=== PATIENT | female | born 1995 | race Caucasian/White ===

== ENCOUNTER → 2022-10-22 13:19 | Outpatient (ROUT) | payer OTHER, MEDICAID, SELFPAY ==
[2022-10-22 13:29] LABS: Add Manual Diff / Slide Review NO; Basophils Absolute Auto 0 /uL (0-100); Basophils Percent Auto 0.2 % (0-2); Eosinophils Absolute Auto 0 /uL (0-450); Eosinophils Percent Auto 0.1 % (2-4); Hematocrit 37.7 % (36-46); Lymphocytes Absolute Auto 2100 /uL (1100-4500); Lymphocytes Percent Auto 15.6 % (25-40); Mean Corpuscular HGB Conc 34.4 % (30-36); Mean Corpuscular Hemoglobin 30.5 PG (26-34); Mean Corpuscular Volume 88.5 fL (80-100); Monocytes Absolute Auto 700 /uL (0-900); Neutrophils Absolute Auto 10900 /uL (1500-7000); Neutrophils Percent Auto 79.1 % (50-75); Platelet Count 264 X10^3/uL (150-400); Red Blood Cell Count 4.26 X10^6/uL (4.0-5.2); Red Cell Distribution Width 13.4 % (11.6-14.8); White Blood Cell Count 13.7 X10^3/uL (4.5-11.0)
[2022-10-22 14:13] LABS: Aspartate Aminotransferase 26 IU/L (14-36); BUN Creatinine Ratio 12.7 (6-22); Blood Urea Nitrogen 7 mg/dL (7-17); Estimated Glomerular Filt Rate > 60 mL/min (>60); Uric Acid 5.6 mg/dL (2.5-6.2)
[2022-10-22 15:23] LABS: Creatinine Urine Random 100.5 mg/dL; Protein (Total) Urine Random 16 mg/dL (0-12); Protein Creatinine Ratio Urine 0.15 GRAM/24H
== END ==
PROVIDERS: Visit Provider Nurse Practitioner Obstetrics & Gynecology
DX: Z34.93 Encounter for supervision of normal pregnancy, unspecified, third trimester (principal); R03.0 Elevated blood-pressure reading, without diagnosis of hypertension
CPT/HCPCS: 82570; 84156; 84450; 84550; 85025

== ENCOUNTER 2022-10-22 15:36 | Inpatient (IN) | payer OTHER, MEDICAID, SELFPAY ==
[2022-10-22] MEDS: LACTATED RINGERS 1,000 ML 100 ML IV ×2 (16:50→22:23)
[2022-10-22 17:26] LABS: Add Manual Diff / Slide Review NO; Basophils Absolute Auto 0 /uL (0-100); Basophils Percent Auto 0.1 % (0-2); Eosinophils Absolute Auto 0 /uL (0-450); Eosinophils Percent Auto 0.1 % (2-4); Hematocrit 35.3 % (36-46); Hemoglobin 12.3 g/dL (12.0-16.0); Lymphocytes Absolute Auto 1700 /uL (1100-4500); Lymphocytes Percent Auto 15.1 % (25-40); Mean Corpuscular HGB Conc 34.9 % (30-36); Mean Corpuscular Hemoglobin 30.8 PG (26-34); Mean Corpuscular Volume 88.2 fL (80-100); Monocytes Absolute Auto 600 /uL (0-900); Monocytes Percent Auto 5.3 % (3-14); Neutrophils Absolute Auto 8800 /uL (1500-7000); Neutrophils Percent Auto 79.4 % (50-75); Platelet Count 232 X10^3/uL (150-400); Red Cell Distribution Width 13.1 % (11.6-14.8); White Blood Cell Count 11.1 X10^3/uL (4.5-11.0)
[2022-10-22 17:53] LABS: Alanine Aminotransferase 17 IU/L (<35); Albumin 3.7 g/dL (3.5-5.0); Alkaline Phosphatase 135 U/L (38-126); Aspartate Aminotransferase 26 IU/L (14-36); BUN Creatinine Ratio 10.3 (6-22); Bilirubin Total 0.3 mg/dL (0.2-1.3); Blood Urea Nitrogen 6 mg/dL (7-17); Calcium 8.5 mg/dL (8.4-10.2); Carbon Dioxide 22 mmol/L (22-32); Chloride 104 mmol/L (98-107); Estimated Glomerular Filt Rate > 60 mL/min (>60); Globulin 3.6 g/dL (1.7-4.1); Glucose 90 mg/dL (70-100); HEMOLYSIS < 15 (0-50); Potassium 3.6 mmol/L (3.4-5.1); Sodium 134 mmol/L (137-145); Total Protein 7.3 g/dL (6.3-8.2)
--- NOTE | 2022-10-22 18:02 | P.HPOB_ITS ---
OB HPI Date/Time Date of admission: 10/22/22 Date Patient Seen: 10/22/22 Time Patient Seen: 17:00 History of Present Condition Chief complaint: obs of labor/induced : 4 Para: 1 Estimated Date of Delivery: 10/27/22 Estimated Gestational Age (weeks): 39w2d Narrative: Alan Ingram is a 27 year old female by approximate LMP 01/20/22 concordant with 13week US. Uncomplicated care with CNMs. Mild anemia in , managed with oral iron supplementation. The past day Alan had a persistent headache, emesis, and elevated blood pressures at home, took 500mg acetaminophen. Came to clinic for evaluation, serial blood pressures were elevated. PIH panel and urine/creatine labs collected and sent to the lab. Recommended additional 500mg acetaminophen, headache relieved. Here for an IOL d/t gestational hypertension. Hx of gestational hypertension in previous with uncomplicated . Epidural catheter piece left in her back. Supportive at bedside. Indications Indication for induction OB: gestational HTN/pre-eclampsia History of Present care: good care, initiated at week # (13), number of visits (11) and pounds weight gain (35) Dating criteria: LMP confirmed by 1st trimester US Ultrasounds: normal 1st trimester US and normal mid trimester US Obstetrical complications: gestational hypertension Medical complications: none Preadmission Labs Blood type: A (+) positive -: Antibody screen: negative, Cystic fibrosis screen: negative, GBS status: negative, HIV: negative and RPR/VDLR: negative -: Rubella: immune and Varicella: immune PAP: Normal Cell-free DNA: Negative Urine: Negative 1 hr GTT: 97 Prior (ies) History: NSVB x1 - GHTN Evaluation Evaluation Baseline heart rate: 155 Variability: Moderate (11-25) monitor accelerations: Present Monitor Decelerations: Absent Contraction Frequency (minutes): 4 Uterine Contraction Intensity: Moderate Category of Tracing: Reactive Status: Category l Dilation (cm): 4 Effacement (%): 75 Dilation: 3-4 cm Effacement: 60-70% station: -2 Position of cervix: mid Consistency: soft Durant score: 8 PFSH Medical History (Updated 10/22/22 @ 19:39 by Negin Snyder CNM, MANAGER CLIENT SUPPORT) Epidural catheter present Surgical History (Updated 10/22/22 @ 18:36 by Negin Snyder CNM, DINA) Appendicitis Family History (Updated 10/22/22 @ 18:38 by Negin Snyder CNM, DINA) Mother Hypertension Father Cancer Social History (Updated 10/22/22 @ 18:40 by Negin Snyder CNM, DINA) marital status: unmarried,living together number of children: 1 household members: spouse lives independently: Yes caregiver/support person: No housing: house occupational status: employed Meds Home Medications and Allergies Home Medications Medication Instructions Recorded Confirmed Type No Known Home Medications 10/22/22 10/22/22 History Allergies Allergy/AdvReac Type Severity Reaction Status Date / Time No Known Drug Allergies Allergy Verified 10/22/22 16:39 Review of Systems Review of Systems ROS: Yes All systems reviewed with the patient and are negative except as o therwise documented OB Exam Vital signs Blood Pressure: 153/89 Pulse Rate: 83 Respiratory Rate: 16 Temperature: 97.7 F Objective Labs 10/22/22 17:00 10/22/22 17:30 Labs: Laboratory Results - last 24 hr 10/22/22 10/22/22 17:00 17:30 WBC 11.1 H RBC 4.00 Hgb 12.3 Hct 35.3 L MCV 88.2 MCH 30.8 MCHC 34.9 RDW 13.1 Plt Count 232 Neut % (Auto) 79.4 H Lymph % (Auto) 15.1 L Yancey % (Auto) 5.3 Eos % (Auto) 0.1 L Baso % (Auto) 0.1 Neut # (Auto) 8800 H Lymph # (Auto) 1700 Yancey # (Auto) 600 Eos # (Auto) 0 Baso # (Auto) 0 Sodium 134 L Potassium 3.6 Chloride 104 Carbon Dioxide 22 BUN 6 L Creatinine 0.58 Estimated GFR > 60 BUN/Creatinine Ratio 10.3 Glucose 90 Calcium 8.5 Total Bilirubin 0.3 AST 26 ALT 17 Alkaline Phosphatase 135 H Total Protein 7.3 Albumin 3.7 Globulin 3.6 Albumin/Globulin Ratio 1.0 Assessment and Plan Assessment and Plan Assessment and Plan narrative: A: IUP at 39w2d FHR Cat II: tachycardia Anemia in resolved Gestational hypertension Rh positive GBS negative Favorable cervix P: Standard admit orders IOL with AROM, pitocin PRN Continuous monitoring Fluid bolus for tachycardia Continuous blood pressure monitoring Pain plan includes NO2, Epidural analgesia when requested
[2022-10-22 18:48] VITALS: BP 153/89; PULSE 83; RESP 16; TEMP 36.5
--- NOTE | 2022-10-22 19:39 | PM.OBPNLAB ---
Date/Time Date Patient Seen: 10/22/22 Time Patient Seen: 19:23 Pain Control Pain control: tolerating well Comments: Alan is coping well with consistent contractions after fore bag of stapleton were broken by SNM, no leaking fluid. Bouncing on the ball, supported by her partner. States that the contractions are getting longer and stronger and needing to breathe through them. Consents to cervical check by CNM and try again to break bag of stapleton. Denies headache, visual changes, epigastric pain. BP: 134/86 Pulse: 85 MAP: 106mmHg Temp: 36.4C O2: 98% Contractions Frequency: 4-4.5min Length: 1.5min Strength: Moderate contractions by palpation, soft resting tone Pelvic Exam Dilation (cm): 4 Effacement (%): 75 station: -2 Amniotic membrane status: Intact Comments: AROM with light mec Contractions Date/Time contractions began: 10/22/22 1615 Contractions on admission: irregular Monitor mode: External Contraction frequency (min): 4 Contraction duration (min): 1 Contraction pattern: Regular Contraction intensity: Moderate Status status: Category l Heart Rate Baseline: 145 Monitor Accelerations: Present Monitor Decelerations: Absent Monitor Variability: Moderate Comments: tachycardia noted on admission resolved easily with fluid bolus. Assessment and Plan Assessment: active labor and induction ongoing Plan: continuous present management Comments: Assessment: at 39w2d by LMP in early labor Meconium stained amniotic fluid IOL for GHTN FHR Cat 1 green Plan: AROM Alert RT to be present at delivery d/to MSAF Nitrous for pain management, epidural on request. Continuous monitoring r/to GHTN Repeat PET labs at 12 hours. Anticipate NSVB.
[2022-10-22] MEDS: LACTATED RINGERS 1,000 ML 999 ML IV (19:45)
--- NOTE | 2022-10-22 20:00 | PM.AN.REGBLK ---
Regional Block Pre-procedure Procedure: Continuous Lumbar Epidural for L&D Attending OB provider: Negin Snyder PMH/ROS narrative: at 39+, uncomplicated . H/o epidural tip retained, outside epidural space, to Right of L3 spinous process per record. No other sig PMH. ASA Class: II Labs: Hct 35.3 % (36-46) L 10/22/22 17:00 Plt Count 232 X10^3/uL (150-400) 10/22/22 17:00 Medications: Current Medications Generic Name Dose Route Start Last Admin Trade Name Freq PRN Reason Stop Dose Admin Carboprost Tromethamine 250 mcg 10/22/22 16:37 Carboprost 250 Mcg/Ml Ampul IM Q90M PRN Bleeding Diphenhydramine HCl 25 mg 10/22/22 19:59 Diphenhydramine 50 Mg/Ml Vial IV Q10M PRN Pruritis Fentanyl 50 mcg 10/22/22 16:37 Fentanyl 100 Mcg/2 Ml Inj IV Q1H PRN Pain, Moderate (4-6) Oxytocin/Lactated Ringer's 30 unit in 500 mls @ 200 mls/hr 10/22/22 16:37 Oxytocin Premix IV CONT PRN Bleeding Protocol Tranexamic Acid 1,000 mg/ 100 mls @ 200 mls/hr 10/22/22 16:37 Sodium Chloride IV NOW PRN Bleeding Oxytocin/Lactated Ringer's 30 unit in 500 mls @ 2 mls/hr 10/22/22 16:45 Oxytocin Premix IV TITRATE BEKA Protocol 2 MILLIUNIT/MIN Lactated Ringer's 1,000 mls @ 100 mls/hr 10/22/22 16:45 10/22/22 19:45 Lactated Ringers IV 999 mls/hr CONT BEKA Administration FENT 2MCG/ML BUPIV 0.125% EPI 200 mcg in 100 mls @ 6 mls/hr 10/22/22 20:00 Fentanyl/Bupiv/Ns 2mcg/Ml - 0.125% EPIDURAL CONT BEKA Methylergonovine Maleate 0.2 mg 10/22/22 16:37 Methylergonovine 0.2 Mg Tablet PO Q6HR PRN Heavy Bleeding Methylergonovine Maleate 0.2 mg 10/22/22 16:37 Methylergonovine 0.2 Mg/Ml Vial IM NOW PRN Bleeding Misoprostol 800 mcg 10/22/22 16:37 Misoprostol 200 Mcg Tablet MO NOW PRN Bleeding Misoprostol 400 mcg 10/22/22 16:37 Misoprostol 200 Mcg Tablet SL NOW PRN Bleeding Nalbuphine HCl 2.5 mg 10/22/22 19:59 Nalbuphine 20 Mg/Ml Ampul IV Q10M PRN Pruritis Naloxone HCl 0.2 mg 10/22/22 16:37 Naloxone 0.4 Mg/Ml Vial IV Q2MIN PRN Opiate Reversal Oxytocin 10 unit 10/22/22 16:37 Oxytocin 10 Unit/Ml Vial IM NOW PRN Bleeding Allergies: Allergies Allergy/AdvReac Type Severity Reaction Status Date / Time No Known Drug Allergies Allergy Verified 10/22/22 16:39 Procedure Insertion date: 10/22/22 Insertion time: 20:10 Prep/Local: betadine x3 and 1% lidocaine Interspace: L4-5 Patient position: sitting Needle: 18 gauge Hustead (CSE: 27g Pencan through Hustead, clear CSF, 2.5mg MPF bupiv) Loss of resistance with: saline SANDI at (cm): 5 Catheter placed at SKIN (cm): 10 Catheter in SPACE (cm): 5 Insertion: No CSF, No Blood, No Paresthesia with insertion, No Paresthesia with injection and No Test dose reaction Initial Medications TEST DOSE time: 20:08 TEST DOSE: 1.5% lidocaine with epinephrine 1:200k (mL): 3 Infusion INFUSION: 0.125% bupivacaine and with fentanyl 2 mcg/mL Initial rate (mL/hr): 8 Subsequent interventions: Post-procedure Anesthesia time START: 20:02 Anesthesia time END: :23 Post-procedure Anesthesia Assessment: Yes CV function: HR/BP stable, Yes Resp function: RR/sat/airway adequate, Yes Post-op hydration adequate, Yes Pain control adequate, Yes Nausea & vomiting absent, Yes Mental status appropriate and No Anesthesia complications
--- NOTE | 2022-10-23 00:05 | PM.OBPNLAB ---
Date/Time Date Patient Seen: 10/22/22 Time Patient Seen: 11:45 Pain Control Pain control: epidural Comments: Allee comfortable with epidural. TJ present, providing support. Pelvic Exam Dilation (cm): 10 Effacement (%): 100 station: +1 Amniotic membrane status: Intact Comments: LOP, caput present on posterior vertex Vital Signs: BP 139/80 HR 101 bpm T 36.0 Contractions Date/Time contractions began: Active labor began on 10/22/2022 at 1923 with AROM Contractions on admission: irregular Monitor mode: External Contraction frequency (min): 2 Contraction duration (min): 80 Contraction pattern: Regular Contraction intensity: Moderate Status status: Category l Heart Rate Baseline: 140 Monitor Accelerations: Present Monitor Decelerations: Variable Monitor Variability: Moderate Comments: non-recurrent variable decelerations Assessment and Plan Comments: at 39w2d GHTN 2nd stage labor GBS neg FHR Cat 2 green Plan: Labor down x 30-45 minutes to give baby time to rotate Repeat PET labs now, ordered STAT. Anticipate
[2022-10-23 00:57] LABS: Add Manual Diff / Slide Review NO; Basophils Absolute Auto 100 /uL (0-100); Basophils Percent Auto 0.3 % (0-2); Eosinophils Absolute Auto 0 /uL (0-450); Hematocrit 36.8 % (36-46); Hemoglobin 12.6 g/dL (12.0-16.0); Lymphocytes Absolute Auto 2000 /uL (1100-4500); Lymphocytes Percent Auto 9.6 % (25-40); Mean Corpuscular HGB Conc 34.3 % (30-36); Mean Corpuscular Hemoglobin 30.6 PG (26-34); Mean Corpuscular Volume 89.2 fL (80-100); Monocytes Absolute Auto 800 /uL (0-900); Neutrophils Absolute Auto 18200 /uL (1500-7000); Neutrophils Percent Auto 86.1 % (50-75); Platelet Count 254 X10^3/uL (150-400); Red Blood Cell Count 4.13 X10^6/uL (4.0-5.2); Red Cell Distribution Width 13.7 % (11.6-14.8); White Blood Cell Count 21.1 X10^3/uL (4.5-11.0)
[2022-10-23 01:01] LABS: Alanine Aminotransferase 18 IU/L (<35); Albumin 3.7 g/dL (3.5-5.0); Alkaline Phosphatase 144 U/L (38-126); Aspartate Aminotransferase 27 IU/L (14-36); BUN Creatinine Ratio 9.4 (6-22); Bilirubin Total 0.5 mg/dL (0.2-1.3); Blood Urea Nitrogen 5 mg/dL (7-17); Calcium 8.3 mg/dL (8.4-10.2); Carbon Dioxide 23 mmol/L (22-32); Chloride 102 mmol/L (98-107); Estimated Glomerular Filt Rate > 60 mL/min (>60); Globulin 3.7 g/dL (1.7-4.1); Glucose 94 mg/dL (70-100); HEMOLYSIS < 15 (0-50); Potassium 3.6 mmol/L (3.4-5.1); Sodium 132 mmol/L (137-145); Total Protein 7.4 g/dL (6.3-8.2)
[2022-10-23] MEDS: ONDANSETRON 4 MG/2 ML INJ IV (01:20)
[2022-10-23] MEDS: OXYTOCIN PREMIX 30 UNIT/500 ML PLAST..BAG 350 UNIT IV (01:36)
--- NOTE | 2022-10-23 02:00 | P.PCNOB_ITS ---
Events: Induced HTN Labor & Delivery Delivery date: 10/23/22 Intrapartal Events: None Cervical ripening method: none Induction method: AROM Delivery monitor: external FHT Route of delivery: L&D Laceration Description: None Estimated blood loss (mL): 200 Anesthesia Type: Epidural Complications: none. Narrative: Alan is a G4 now P2 s/p NSVB at 39w2d by approximate LMP and concordant with 13 wk US. Elevated blood pressures at home and in clinic with emesis and persistent headache alleviated by 1,000 mg of acetaminophen. Consented to IOL for gestational hypertension and admitted 10/22/22. PIH labs WNL. Initial tachycardia resolved with fluid bolus. SVE at admit was 4/75/-2, AROM of forebag by SNM, no leaking fluid. Contractions increased in frequency and intensity, Alan coped well with comfort measures and support of her partner/FOB. After laboring for about 2 hours, Alan consented CNM to AROM. Water broke with meconium stained fluid. Contractions intensified and she requested NO2 while anesthesia was called to place an epidural. Rested and labored comfortably with epidural. Stated rectal pressure was building, SVE 10/0/+1 with caput. Labored down for 45min while PIH panel was drawn and resulted WNL. She began to push effectively in throne position. Nausea and emesis before and during pushing, given 4mg zofran IV. FHR Cat I throughout active labor and second sta ge. SNM and FOB delivered vigorous baby girl, OA, no nuchal cord, over intact perineum, placed onto maternal abdomen. RT at bedside to assess at delivery and left when baby had no signs of respiratory distress, APGARS 9/9. 3V cord clamped once pulsations stopped, cut by FOB. IV pitocin given per protocol. Placenta delivered spontaneously, Ralph, within 10min. QBL 200mL. Mother and baby stable and skin to skin when we left the room. [place] and BRUCE are very excited to meet baby girl Bc Valente. Baby 1: Infant gender: Female Presentation: vertex Position: Left Occiput Anterior Placenta delivery description: Spontaneous Cord Vessel Description: 3 Vessels score (1 min): 9 score (5 min): 9 weight: 3.318 kg Plan for aftercare: Routine care and Other (Close monitoring of BP; PIH panel to be collected 1200 10/23/22)
[2022-10-23] MEDS: KETOROLAC 30 MG/ML VIAL IV (04:35)
[2022-10-23] MEDS: FENT 2MCG/ML BUPIV 0.125% EPI 200 MCG/100 ML PLAST..BAG 10 MCG EPIDURAL (05:32)
[2022-10-23] MEDS: IBUPROFEN 600 MG TABLET PO ×2 (10:50→18:33)
[2022-10-23] MEDS: ACETAMINOPHEN 325 MG TABLET 975 MG PO ×2 (12:18→19:42)
[2022-10-23 12:19] VITALS: BP 141/95; PULSE 115
[2022-10-23] MEDS: LABETALOL 100 MG TABLET PO (12:19)
[2022-10-24 00:02] VITALS: BP 113/79; PULSE 62
[2022-10-24] MEDS: LABETALOL 100 MG TABLET PO ×2 (00:02→08:55)
[2022-10-24] MEDS: IBUPROFEN 600 MG TABLET PO ×2 (00:02→08:56)
[2022-10-24 04:00] VITALS: BP 125/80; PULSE 56
[2022-10-24 06:16] LABS: Add Manual Diff / Slide Review NO; Basophils Absolute Auto 0 /uL (0-100); Basophils Percent Auto 0.3 % (0-2); Eosinophils Absolute Auto 100 /uL (0-450); Eosinophils Percent Auto 0.8 % (2-4); Hematocrit 34.7 % (36-46); Hemoglobin 11.9 g/dL (12.0-16.0); Lymphocytes Absolute Auto 3000 /uL (1100-4500); Lymphocytes Percent Auto 24.6 % (25-40); Mean Corpuscular HGB Conc 34.2 % (30-36); Mean Corpuscular Hemoglobin 30.4 PG (26-34); Mean Corpuscular Volume 88.7 fL (80-100); Monocytes Absolute Auto 800 /uL (0-900); Neutrophils Absolute Auto 8200 /uL (1500-7000); Neutrophils Percent Auto 67.3 % (50-75); Platelet Count 243 X10^3/uL (150-400); Red Blood Cell Count 3.92 X10^6/uL (4.0-5.2); Red Cell Distribution Width 13.7 % (11.6-14.8); White Blood Cell Count 12.2 X10^3/uL (4.5-11.0)
[2022-10-24 06:24] LABS: Alanine Aminotransferase 14 IU/L (<35); Albumin 3.2 g/dL (3.5-5.0); Alkaline Phosphatase 92 U/L (38-126); Aspartate Aminotransferase 25 IU/L (14-36); BUN Creatinine Ratio 11.5 (6-22); Bilirubin Total 0.2 mg/dL (0.2-1.3); Blood Urea Nitrogen 7 mg/dL (7-17); Calcium 8.5 mg/dL (8.4-10.2); Carbon Dioxide 28 mmol/L (22-32); Chloride 103 mmol/L (98-107); Estimated Glomerular Filt Rate > 60 mL/min (>60); Globulin 3.3 g/dL (1.7-4.1); Glucose 73 mg/dL (70-100); HEMOLYSIS < 15 (0-50); Potassium 4.4 mmol/L (3.4-5.1); Sodium 135 mmol/L (137-145); Total Protein 6.5 g/dL (6.3-8.2)
[2022-10-24 08:55] VITALS: BP 137/92; PULSE 84
[2022-10-24] MEDS: ACETAMINOPHEN 325 MG TABLET 975 MG PO (08:55)
--- NOTE | 2022-10-24 09:36 | PM.OBDS.1 ---
Discharge Providers Provider Date of admission: 10/22/22 15:36 Discharge Date: 10/24/22 Primary care physician: Stanlye Johnson MD Consults: 10/24/22 01:54 Consult to Breaker Boss Routine Comment: Discharge provider: Negin Snyder CNM, ARNP Summary Hospital Course Date Patient Seen: 10/24/22 Time Patient Seen: 09:00 Diagnoses: s/p NSVB Gestational hypertension hypertension Hospital Course: Alan admitted for GHTN diagnosis at 39w3d. IOL with AROM resulted in NSVB, QBL 200 mL, intact perineum. BPs continued to be elevated, so started on labetalol 100 mg BID with good effect. PET labs normal x 3 prior to and during admission. . Well supported by FOB. Discharge home on PP day 1 with close follow up scheduled re: BP. Peripartum Data Infant Delivery Method: Natural Vaginal Laceration Description: None Procedures: NSVB complications: other (GHTN) [place] 1: Gender: Female Discharge Diagnosis (1) Gestational hypertension: Start Date: 10/22/22 Start Time: 11:00 Status: Acute (2) Breast feeding status of mother: Start Date: 10/23/22 Start Time: 01:23 Status: Acute (3) (normal spontaneous vaginal delivery): Start Date: 10/23/22 Start Time: 01:23 Status: Acute Status at Discharge Cognitive/behavioral status at discharge: at baseline, oriented Functional status at discharge: independent ambulation Overall status at discharge: patient is progressing back to baseline Time Spent with Patient Time attestation: Total time spent providing and/or coordinating discharge services: Specific discharge activities: discharge instructions including warning signs, support. Continue on labetalol 100 mg BID. Objective Labs 10/24/22 06:05 10/24/22 06:05 Labs: Laboratory Results - last 24 hr 10/24/22 10/24/22 06:05 06:05 WBC 12.2 H RBC 3.92 L Hgb 11.9 L Hct 34.7 L MCV 88.7 MCH 30.4 MCHC 34.2 RDW 13.7 Plt Count 243 Neut % (Auto) 67.3 Lymph % (Auto) 24.6 L Johnson % (Auto) 7.0 Eos % (Auto) 0.8 L Baso % (Auto) 0.3 Neut # (Auto) 8200 H Lymph # (Auto) 3000 Johnson # (Auto) 800 Eos # (Auto) 100 Baso # (Auto) 0 Sodium 135 L Potassium 4.4 Chloride 103 Carbon Dioxide 28 BUN 7 Creatinine 0.61 Estimated GFR > 60 BUN/Creatinine Ratio 11.5 Glucose 73 Calcium 8.5 Total Bilirubin 0.2 AST 25 ALT 14 Alkaline Phosphatase 92 D Total Protein 6.5 Albumin 3.2 L Globulin 3.3 Albumin/Globulin Ratio 1.0 Exam Vital Signs (past 8 hours): - 10/24/22 04:00 10/24/22 08:55 Pulse Rate 56 L 84 Blood Pressure 125/80 137/92 H RR 17/min Temp 97.7 temporal Discharge Plan Discharge Plan Patient Disposition: Home Provider Discharge Comment: Discharge home on labetalol 100 mg BID Discharge orders & Medications Prescriptions: New acetaminophen 325 mg Tablet 975 mg PO Q8H MDD 3000 mb PRN (Reason: Pain, Mild (1-3)) Qty: 30 0RF Rx Instructions: Take one tablet every 8 hours as needed for pain or headache. ibuprofen 600 mg Tablet 800 mg PO Q8H PRN (Reason: Pain, Mild (1-3)) Qty: 30 0RF Rx Instructions: Take one tablet every 8 hours as needed for pain labetalol 100 mg Tablet 100 mg PO BID Qty: 30 1RF Rx Instructions: Take one tablet every 12 hours for high blood pressure Follow up/Referrals: Negin Snyder, JONNA, POSTDOCTORAL FELLOW [[employer] Youth Development Specialist] - 3-5 Days (Appointments scheduled for BP check on 10/27 at 9 am. 2 week and 6 week appointments scheduled and details sent via e-mail.) Stanley Johnson MD [Primary Care Provider] - Activity Restrictions/Additional Instructions: Strong recommendation to avoid shopping in stores, vacuuming, carrying heavy objects for 2 weeks. Encourage lots of skin to skin with baby to establish good . Diet/Activity/Treatments Diet: Diet as Tolerated and Regular Diet comment: Focus on raw fruits and veggies to support health and good bowel movements Activity: Please be low-you for 2 weeks to manage healing Cold/Heat Therapy: Comfort measures as needed for pain Skin/Wound/Dressing Care Skin care: usual Report to your healthcare provider any signs of infection, such as:: chills, fever, unusual drainage and unusual redness Visit Report/Discharge Packet Stand Alone Forms: Patient Portal/API Discharge Data Primary Care Provider: Stanley Johnson
== END 2022-10-24 11:00 | disposition home or self-care (01) | DRG 560 ==
PROVIDERS: Admitting Provider Advanced Practice Midwife; PCP Family Medicine; Referring Provider Advanced Practice Midwife; Visit Provider Advanced Practice Midwife
DX: O13.4 Gestational [pregnancy-induced] hypertension without significant proteinuria, complicating childbirth (principal); Z3A.39 39 weeks gestation of pregnancy; Z37.0 Single live birth; O99.02 Anemia complicating childbirth; D64.9 Anemia, unspecified; Z34.03 Encounter for supervision of normal first pregnancy, third trimester; R03.0 Elevated blood-pressure reading, without diagnosis of hypertension
CPT/HCPCS: 36415; 59050; 80053; 82570; 84156; 84450; 84550; 85025; 86850; 86900; 86901; G0379; J1885; J2405; J2590